=== PATIENT | female | born 1940 | race African-American/Black ===

== ENCOUNTER 2021-11-25 13:25 | Emergency (ER) | payer MEDICARE, MEDICAID ==
[~2021-11-25] VITALS: Ht 162.6 cm; Wt 81.0 kg
[~2021-11-25 13:25] MED LIST: AMLODIPINE; ANAPRIL
[2021-11-25] MEDS ORDERED: KETOROLAC 60MG/2ML VIAL IM ONE (15:00)
[2021-11-25 15:30] VITALS: BP 138/59
== END 2021-11-25 15:51 | disposition home or self-care (01) ==
LOC: ER 13:25
DX: M54.9 Dorsalgia, unspecified (principal); I10 Essential (primary) hypertension; Z91.041 Radiographic dye allergy status
CPT/HCPCS: 72100; 96372; 99283; J1885

== ENCOUNTER → 2023-09-13 | Day surgery (SDC) | payer MEDICARE, MEDICAID ==
[~2023-09-13] MED LIST changes: +LIDOCAINE HCL 1% 10 MG/ML 10ML VIAL ONE; +SODIUM BICARBONATE 4% 2.4MEQ/5ML VIAL IV ONE
== END | disposition home or self-care (01) ==
LOC: RAD 09:38
PROVIDERS: ATTEND Internal Medicine
DX: E04.1 Nontoxic single thyroid nodule (principal); Z79.899 Other long term (current) drug therapy; Z91.041 Radiographic dye allergy status
CPT/HCPCS: 10005; 88173; J3490 ×2

== ENCOUNTER → 2024-07-05 | Outpatient (CLI) | payer MEDICARE, MEDICAID ==
[~2024-07-05] MED LIST changes: -LIDOCAINE HCL 1% 10 MG/ML 10ML VIAL ONE; -SODIUM BICARBONATE 4% 2.4MEQ/5ML VIAL IV ONE
== END | disposition home or self-care (01) ==
LOC: RAD 10:34
PROVIDERS: ATTEND Internal Medicine
DX: S43.005A Unspecified dislocation of left shoulder joint, initial encounter (principal); M19.012 Primary osteoarthritis, left shoulder; X58.XXXA Exposure to other specified factors, initial encounter; Y93.89 Activity, other specified; Y92.89 Other specified places as the place of occurrence of the external cause; Y99.8 Other external cause status
CPT/HCPCS: 73030